=== PATIENT | female | born 1975 | race Caucasian/White ===

== ENCOUNTER → 2017-11-15 | Outpatient (CLI) | payer OTHER ==
[2013-12-22 09:53] VITALS: BP 135/75
--- NOTE | 2017-11-15 14:48 | KCIC ---
Bilateral diagnostic digital mammograms: Reason for examination: Right breast lump felt by doctor on clinical exam. Comparison is made to previous studies dated 01/25/2016 and 02/24/2015. Interpretation was made with the benefit of CAD. The skin and nipples show no abnormalities. No abnormal axillary lymph nodes are seen. The breast parenchyma shows scattered fibroglandular density. (Breast density: Category B.) There is a tiny circumscribed lesion measuring 2.7 mm in size located at the 6:00 B position. There is also some nodularity suggested laterally in the right breast probably at the 9:00 B position. There are no other dominant masses, suspicious calcifications or architectural distortions. Biopsy clips remain present bilaterally. Impression: Small nodular densities in the right breast. Ultrasound to follow. BI-RADS Category 0: Incomplete. Needs additional imaging evaluation. Right breast ultrasound: Right whole breast ultrasound including evaluation of all 4 quadrants and the retroareolar and axillary regions of the right breast was performed. In the 6:00 position 4 cm from the nipple, there is a small hypoechoic circumscribed lesion which probably represents a small cyst measures 2 mm in greatest dimension. In the 9:00 position 5 cm from the nipple, there is a hypoechoic circumscribed lesion in parallel orientation consistent with small fibroadenoma measuring 4.4 mm in greatest dimension. No other focal solid or suspicious lesions are seen. No abnormal appearing lymph nodes are seen in the axilla. IMPRESSION: Benign-appearing nodular densities at the 6:00 and 9:00 positions which probably represent a cyst and fibroadenoma respectively. Recommend 6 month sonographic follow-up. BI-RADS Category 3: Probably Benign. "Our facility is accredited by the [employer] Mammography Program." This patient's information has been entered into a reminder system for the patient to be notified with the results of her examination and a target date for the next mammogram. Electronically signed by: Lauren Estrada MD (11/15/2017 2:45 PM) [facility]
== END | disposition home or self-care (01) ==
LOC: KCIC MAMMO 09:50
PROVIDERS: ATTEND Nurse Practitioner Family
DX: C54.1 Malignant neoplasm of endometrium (principal); D24.1 Benign neoplasm of right breast; N63.11 Unspecified lump in the right breast, upper outer quadrant; N62 Hypertrophy of breast
CPT/HCPCS: 76641; 77066